=== PATIENT | male | born 1965 | race Caucasian/White ===

== ENCOUNTER 2023-02-03 08:58 | Outpatient (CLI) | payer BC ==
[2023-02-03] MEDS ORDERED: Iopamidol 370 76% 100 ML VIAL ONE (11:16)
== END 2023-02-03 08:59 | disposition home or self-care (01) ==
LOC: CT 08:58
PROVIDERS: ATTEND Urology
DX: N28.89 Other specified disorders of kidney and ureter (principal); E27.8 Other specified disorders of adrenal gland; I87.9 Disorder of vein, unspecified
CPT/HCPCS: 71260; 74178

== ENCOUNTER 2023-02-09 08:26 | Outpatient (CLI) | payer BC | END 2023-02-09 08:27 | disposition home or self-care (01) | LOC: NM 08:26 | PROVIDERS: ATTEND Urology | DX: N28.89 Other specified disorders of kidney and ureter (principal); E27.8 Other specified disorders of adrenal gland | CPT/HCPCS: 78306; A9503 ==

== ENCOUNTER 2023-03-11 14:30 | Outpatient (CLI) | payer BC ==
[2023-03-11 16:05] LABS: Bilirubin Neg (Negative); Blood, Urine Negative (Negative); Clarity Clear (Clear); Glucose, Urine (Dipstick) Normal (Negative); Ketone, Urine Negative (Negative); Leukocyte Negative (Negative); Nitrite Negative (Negative); Protein, Urine (Dipstick) Negative (Neg-Trace); Specific Gravity, Urine 1.015 (1.005-1.030); Urobilinogen Normal mg/dL (Less than 2)
[2023-03-11 16:07] LABS: Hematocrit 42.9 % (38.8-50.0); Hemoglobin 15.1 g/dL (13.5-17.5); Mean Corpuscular HGB CONC 35.2 g/dL (32.0-36.0); Mean Corpuscular Hemoglobin 31.5 pg (27.0-33.0); Mean Corpuscular Volume 89.4 fl (81.2-95.1); Mean Platelet Volume 10.3 fl (7.4-10.4); Platelet Count 241 10x3/uL (150-450); RBC Distribution Width 12.3 % (11.5-14.5); White Blood Cell (WBC) Count 6.7 10x3/uL (3.5-10.5)
[2023-03-11 16:16] LABS: Bacteria/HPF None Seen HPF (None Seen); RBC/HPF None Seen HPF (0-3); Squamous Epithelial 0-3 HPF (0-3); WBC/HPF None Seen HPF (0-3)
[2023-03-11 16:23] LABS: PTT 27.5 sec (22.0-33.0); Prothrombin Time 10.7 sec (9.5-12.1)
[2023-03-11 16:28] LABS: Anion Gap 18 mmol/L (10-20); BUN (Urea Nitrogen) 13 mg/dL (8.4-25.7); Calc. Creatinine Clearance 0 mL/min (70-130); Calcium 9.3 mg/dL (7.8-10.44); Carbon Dioxide 21 mmol/L (22-29); Chloride 105 mmol/L (98-107); Estimated GFR 94; Glucose 115 mg/dL (70-105); Potassium 4.3 mmol/L (3.5-5.1); Sodium 140 mmol/L (136-145)
== END 2023-03-11 14:31 | disposition home or self-care (01) ==
LOC: LABBT 14:30
PROVIDERS: ATTEND Urology
DX: Z01.818 Encounter for other preprocedural examination (principal); N28.89 Other specified disorders of kidney and ureter
CPT/HCPCS: 71046; 80048; 81001; 85027; 85610; 85730; 87086; 93005; 93010

== ENCOUNTER 2023-03-17 07:17 | Inpatient (IN) | payer BC ==
[2023-03-17] MEDS ORDERED: Heparin 10,000 UNITS/ 10 ML VIAL ONE (08:55)
[2023-03-17] MEDS ORDERED: fentaNYL 50 mcg/mL 1 mL Vial ONE ×7 (09:49→12:34)
[2023-03-17] MEDS ORDERED: Midazolam HCl 2 mg/2 ml Vial ONE ×2 (09:50→11:27)
[2023-03-17] MEDS ORDERED: hydrALAZINE 20 MG/ML VIAL ONE ×2 (09:55→11:35)
[2023-03-17] MEDS ORDERED: Iopamidol 370 76% 100 ML VIAL ONE (10:42)
[2023-03-17] MEDS ORDERED: Morphine 4 MG/ML VIAL ONE (11:06)
[2023-03-17] MEDS ORDERED: Atropine Sulfate 1 mg/10 ml Syringe ONE (11:30)
[2023-03-17] MEDS ORDERED: Ondansetron PF 4 MG/2 ML Vial ONE (11:53)
[2023-03-17] MEDS ORDERED: Metoprolol Tartrate 5 MG (5 mL) VIAL ONE (12:00)
[2023-03-17] MEDS ORDERED: Ondansetron PF 4 MG/2 ML Vial IVP PRN (12:02)
[2023-03-17] MEDS ORDERED: HYDROmorphone/PF 10 MG in Sodium Chloride 0.9% 99 ML IV PRN (12:02)
[2023-03-17] MEDS ORDERED: diphenhydrAMINE 50 MG/ML VIAL IVP PRN (12:02)
[2023-03-17] MEDS ORDERED: Naloxone HCl 0.4 mg/ml Vial IV PRN (12:02)
[2023-03-17] MEDS ORDERED: diphenhydrAMINE 50 MG/ML VIAL IM PRN (12:02)
[2023-03-17] MEDS ORDERED: diphenhydrAMINE 25 MG CAP PO PRN (12:02)
[2023-03-17] MEDS ORDERED: Communication Order-Pharmacy FS SCH (12:15)
[2023-03-17] MEDS ORDERED: HYDROmorphone 0.5 MG/0.5 ML SYRINGE ONE ×3 (12:42→13:26)
[2023-03-17] MEDS ORDERED: Acetaminophen 325 MG TAB PO PRN (13:06)
[2023-03-17] MEDS ORDERED: Metoclopramide HCl 10 MG (2 mL) VIAL IVP PRN (13:09)
[2023-03-17] MEDS ORDERED: Sodium Chloride 0.9% 1,000 ML IV SCH (13:15)
[2023-03-17] MEDS ORDERED: Scopolamine 1 mg/72 hour Patch ONE (15:52)
[2023-03-17] MEDS: Sodium Chloride 0.9% 1,000 ML IV SCH (17:27)
[2023-03-17] MEDS: Piperacillin/Tazobactam 3.375 GM in Sodium Chloride 0.9% 100 ML IVPB SCH (17:29)
[2023-03-17] MEDS ORDERED: GoLYTELY 4,000 ml Bottle PO SCH (17:30)
[2023-03-17] MEDS: GoLYTELY 4,000 ml Bottle PO SCH ×2 (17:53→17:56)
[2023-03-17 19:56] LABS: Hematocrit 43.4 % (42.0-52.0); Hemoglobin 14.9 g/dL (14.0-18.0); Mean Corpuscular HGB CONC 34.3 g/dL (32.0-36.0); Mean Corpuscular Hemoglobin 31.7 pg (27.0-31.0); Mean Corpuscular Volume 92.3 fl (78.0-98.0); Mean Platelet Volume 9.7 fL (7.4-10.4); Platelet Count 233 10x3/uL (130-400); RBC Distribution Width 12.6 % (11.5-14.5)
[2023-03-17 20:09] LABS: INR-International Normal Ratio 1.2; Prothrombin Time 14.7 sec (12.0-14.7)
[2023-03-17 20:10] LABS: PTT 25.8 sec (22.9-36.1)
[2023-03-17 20:19] LABS: Anion Gap 17 mmol/L (10-20); BUN (Urea Nitrogen) 12 mg/dL (8.4-25.7); Calc. Creatinine Clearance 123 mL/min (70-130); Carbon Dioxide 19 mmol/L (22-29); Chloride 105 mmol/L (98-107); Estimated GFR 75; Glucose 174 mg/dL (70-105); Potassium 4.1 mmol/L (3.5-5.1); Sodium 137 mmol/L (136-145)
[2023-03-18] MEDS: Piperacillin/Tazobactam 3.375 GM in Sodium Chloride 0.9% 100 ML IVPB SCH ×5 (00:20→23:48)
[2023-03-18] MEDS: Sodium Chloride 0.9% 1,000 ML IV SCH ×4 (00:21→22:02)
[2023-03-18] MEDS: Ondansetron PF 4 MG/2 ML Vial IVP PRN (00:24)
[2023-03-18 04:19] LABS: #Monocytes 0.7 thou/uL (0.11-0.59); #Neutrophils 10.6 thou/uL (1.40-6.50); %Basophils 0.2 % (0.0-1.0); %Lymphocytes 4.2 % (21.0-51.0); %Neutrophils 89.3 % (42.0-75.0); Hematocrit 41.4 % (42.0-52.0); Hemoglobin 14.1 g/dL (14.0-18.0); Mean Corpuscular HGB CONC 34.1 g/dL (32.0-36.0); Mean Corpuscular Volume 93.9 fl (78.0-98.0); Mean Platelet Volume 9.7 fL (7.4-10.4); Platelet Count 210 10x3/uL (130-400); RBC Distribution Width 12.6 % (11.5-14.5); Red Blood Cell (RBC) Count 4.41 mill/uL (4.70-6.10); White Blood Cell (WBC) Count 11.9 10x3/uL (4.8-10.8)
[2023-03-18 05:19] LABS: Anion Gap 16 mmol/L (10-20); BUN (Urea Nitrogen) 13 mg/dL (8.4-25.7); Calc. Creatinine Clearance 125 mL/min (70-130); Calcium 8.7 mg/dL (7.8-10.44); Carbon Dioxide 19 mmol/L (22-29); Chloride 106 mmol/L (98-107); Estimated GFR 76; Glucose 122 mg/dL (70-105); Potassium 4.2 mmol/L (3.5-5.1); Sodium 137 mmol/L (136-145)
[2023-03-18] MEDS ORDERED: Lidocaine 1% MPF 2 ML VIAL ONE (07:07)
[2023-03-18] MEDS ORDERED: Dexamethasone 20 MG/5 ML VIAL ONE (08:03)
[2023-03-18] MEDS ORDERED: PROPOFOL 200 MG/20 ML VIAL ONE (08:03)
[2023-03-18] MEDS ORDERED: Lidocaine 1.5% w/Epi 1:200K 30 ML VIAL (Epid Use) ONE (08:03)
[2023-03-18] MEDS ORDERED: PHENYLEPHRINE-NS 100 MCG/ML 10 ML SYRINGE ONE (08:03)
[2023-03-18] MEDS ORDERED: Calcium Chloride 1 GM/10 ML Abboject SYRINGE ONE (08:03)
[2023-03-18] MEDS ORDERED: Rocuronium Bromide 10 MG/ML (10ML VIAL) ONE (08:03)
[2023-03-18] MEDS ORDERED: Labetalol HCl 100 MG/20 ML VIAL ONE (08:03)
[2023-03-18] MEDS ORDERED: HYDROcodone/Acetaminophen 5/325 mg Tablet PO PRN (08:30)
[2023-03-18] MEDS ORDERED: Bupivacaine 0.25% 10 ML VIAL EPIDURAL PRN (08:30)
[2023-03-18] MEDS ORDERED: Zolpidem Tartrate 5 MG TAB PO PRN (08:30)
[2023-03-18] MEDS ORDERED: traMADol HCl 50 MG TAB PO PRN ×2 (08:30)
[2023-03-18] MEDS ORDERED: Promethazine HCl 25 MG SUPP PR PRN (08:30)
[2023-03-18] MEDS ORDERED: Naloxone HCl 0.4 mg/ml Vial IVP PRN (08:30)
[2023-03-18] MEDS ORDERED: Naloxone HCl 0.4 mg/ml Vial IV PRN (08:30)
[2023-03-18] MEDS ORDERED: Moisturizing Cream (Eucerin) 113 GM JAR TOP PRN (08:30)
[2023-03-18] MEDS ORDERED: ACTIVE EPIDURAL FS PRN (08:45)
[2023-03-18] MEDS ORDERED: Bisacodyl 10 MG SUPP PR PRN (12:37)
[2023-03-18] MEDS ORDERED: Promethazine HCl 25 MG/ML VIAL IM PRN (12:44)
[2023-03-18] MEDS ORDERED: Ondansetron HCl/PF 4 MG/2 ML Vial IVP PRN (12:44)
[2023-03-18] MEDS ORDERED: HYDROmorphone 2 MG/ML VIAL SLOW IVP PRN (12:44)
[2023-03-18] MEDS ORDERED: Polyethylene Glycol 3350 17 GM Packet PER TUBE SCH (12:45)
[2023-03-18] MEDS ORDERED: hydrALAZINE 20 MG/ML VIAL ONE (13:05)
[2023-03-18] MEDS ORDERED: fentaNYL 50 mcg/mL 1 mL Vial ONE (13:20)
[2023-03-18 13:21] LABS: #Monocytes 0.6 thou/uL (0.11-0.59); #Neutrophils 8.7 thou/uL (1.40-6.50); %Basophils 0.2 % (0.0-1.0); %Lymphocytes 3.7 % (21.0-51.0); %Neutrophils 89.9 % (42.0-75.0); Hematocrit 38.4 % (42.0-52.0); Hemoglobin 13.5 g/dL (14.0-18.0); Mean Corpuscular HGB CONC 35.2 g/dL (32.0-36.0); Mean Corpuscular Hemoglobin 31.9 pg (27.0-31.0); Mean Platelet Volume 9.8 fL (7.4-10.4); Platelet Count 156 10x3/uL (130-400); RBC Distribution Width 13.2 % (11.5-14.5); Red Blood Cell (RBC) Count 4.23 mill/uL (4.70-6.10); White Blood Cell (WBC) Count 9.7 10x3/uL (4.8-10.8)
[2023-03-18 13:27] LABS: Mean Corpuscular Volume 90.8 fl (78.0-98.0)
[2023-03-18 13:42] LABS: Anion Gap 10 mmol/L (10-20); BUN (Urea Nitrogen) 14 mg/dL (8.4-25.7); Calc. Creatinine Clearance 111 mL/min (70-130); Calcium 8.6 mg/dL (7.8-10.44); Carbon Dioxide 21 mmol/L (22-29); Chloride 110 mmol/L (98-107); Estimated GFR 65; Glucose 149 mg/dL (70-105); Potassium 4.1 mmol/L (3.5-5.1); Sodium 137 mmol/L (136-145)
[2023-03-18] MEDS ORDERED: hydrALAZINE 20 MG/ML VIAL SLOW IVP SCH (17:45)
[2023-03-18] MEDS: HYDROcodone/Acetaminophen 5/325 mg Tablet PO PRN ×2 (20:02→23:49)
[2023-03-18] MEDS: Docusate 100 MG CAP PO SCH (20:02)
[2023-03-18] MEDS ORDERED: Ropivacaine 0.2% HCl/PF 20 ML ONE (20:04)
[2023-03-18] MEDS ORDERED: Dexmedetomidine 200 MCG/2 ML VIAL ONE (20:05)
[2023-03-18] MEDS: Acetaminophen 325 MG TAB PO SCH (22:01)
[2023-03-19] MEDS: Labetalol HCl 100 MG/20 ML VIAL SLOW IVP PRN ×2 (02:08→23:42)
[2023-03-19] MEDS: Acetaminophen 325 MG TAB PO SCH ×4 (03:55→21:29)
[2023-03-19] MEDS: HYDROcodone/Acetaminophen 5/325 mg Tablet PO PRN (03:55)
[2023-03-19] MEDS: FENTANYL 500 MCG/10 ML VIAL 500 MCG, Bupivacaine 0.75% 10 ML in Sodium Chloride 0.9% 80 ML EPIDURAL SCH ×2 (04:25→17:02)
[2023-03-19] MEDS: Ondansetron PF 4 MG/2 ML Vial IVP PRN (05:02)
[2023-03-19] MEDS: Piperacillin/Tazobactam 3.375 GM in Sodium Chloride 0.9% 100 ML IVPB SCH ×4 (05:02→23:42)
[2023-03-19 05:17] LABS: #Monocytes 0.8 thou/uL (0.11-0.59); #Neutrophils 10.5 thou/uL (1.40-6.50); %Basophils 0.2 % (0.0-1.0); %Lymphocytes 4.5 % (21.0-51.0); %Monocytes 6.6 % (0.0-10.0); %Neutrophils 88.4 % (42.0-75.0); Hematocrit 39.3 % (42.0-52.0); Hemoglobin 13.5 g/dL (14.0-18.0); Mean Corpuscular HGB CONC 34.4 g/dL (32.0-36.0); Mean Corpuscular Hemoglobin 31.7 pg (27.0-31.0); Mean Corpuscular Volume 92.3 fl (78.0-98.0); Mean Platelet Volume 9.9 fL (7.4-10.4); Platelet Count 177 10x3/uL (130-400); RBC Distribution Width 13.6 % (11.5-14.5); Red Blood Cell (RBC) Count 4.26 mill/uL (4.70-6.10); White Blood Cell (WBC) Count 11.9 10x3/uL (4.8-10.8)
[2023-03-19 05:41] LABS: Anion Gap 11 mmol/L (10-20); BUN (Urea Nitrogen) 14 mg/dL (8.4-25.7); Calc. Creatinine Clearance 123 mL/min (70-130); Calcium 8.7 mg/dL (7.8-10.44); Carbon Dioxide 21 mmol/L (22-29); Chloride 108 mmol/L (98-107); Estimated GFR 74; Glucose 117 mg/dL (70-105); Potassium 3.7 mmol/L (3.5-5.1); Sodium 136 mmol/L (136-145)
[2023-03-19] MEDS: Sodium Chloride 0.9% 1,000 ML IV SCH ×3 (06:38→23:42)
[2023-03-19] MEDS ORDERED: Lidocaine 1.5% w/Epi 1:200K 30 ML VIAL (Epid Use) ONE (08:40)
[2023-03-19] MEDS: Docusate 100 MG CAP PO SCH ×2 (11:30→21:30)
[2023-03-19] MEDS: Pantoprazole 40 MG VIAL IVP SCH (11:30)
[2023-03-19] MEDS: Albuterol 1.25 MG (3 mL) NEB NEB SCH ×2 (13:56→19:47)
[2023-03-19] MEDS: Metoclopramide HCl 10 MG (2 mL) VIAL IVP SCH ×2 (15:58→21:30)
[2023-03-20] MEDS: Acetaminophen 325 MG TAB PO SCH ×4 (03:26→20:05)
[2023-03-20 04:03] LABS: #Monocytes 0.7 thou/uL (0.11-0.59); #Neutrophils 7.9 thou/uL (1.40-6.50); %Basophils 0.2 % (0.0-1.0); %Eosinophils 0.1 % (0.0-10.0); %Lymphocytes 7.5 % (21.0-51.0); %Monocytes 7.5 % (0.0-10.0); %Neutrophils 84.3 % (42.0-75.0); Hematocrit 34.6 % (42.0-52.0); Hemoglobin 11.9 g/dL (14.0-18.0); Mean Corpuscular HGB CONC 34.4 g/dL (32.0-36.0); Mean Corpuscular Hemoglobin 31.9 pg (27.0-31.0); Mean Corpuscular Volume 92.8 fl (78.0-98.0); Mean Platelet Volume 9.8 fL (7.4-10.4); Platelet Count 147 10x3/uL (130-400); RBC Distribution Width 13.6 % (11.5-14.5); Red Blood Cell (RBC) Count 3.73 mill/uL (4.70-6.10); White Blood Cell (WBC) Count 9.3 10x3/uL (4.8-10.8)
[2023-03-20 04:28] LABS: Anion Gap 10 mmol/L (10-20); BUN (Urea Nitrogen) 14 mg/dL (8.4-25.7); Calc. Creatinine Clearance 130 mL/min (70-130); Calcium 8.2 mg/dL (7.8-10.44); Carbon Dioxide 22 mmol/L (22-29); Chloride 109 mmol/L (98-107); Estimated GFR 80; Glucose 97 mg/dL (70-105); Potassium 3.8 mmol/L (3.5-5.1); Sodium 137 mmol/L (136-145)
[2023-03-20] MEDS: Labetalol HCl 100 MG/20 ML VIAL SLOW IVP PRN ×3 (05:40→20:11)
[2023-03-20] MEDS: Piperacillin/Tazobactam 3.375 GM in Sodium Chloride 0.9% 100 ML IVPB SCH ×4 (05:41→23:20)
[2023-03-20] MEDS: Metoclopramide HCl 10 MG (2 mL) VIAL IVP SCH ×3 (05:41→21:19)
[2023-03-20] MEDS: FENTANYL 500 MCG/10 ML VIAL 500 MCG, Bupivacaine 0.75% 10 ML in Sodium Chloride 0.9% 80 ML EPIDURAL SCH ×2 (05:46→18:23)
[2023-03-20] MEDS: Albuterol 1.25 MG (3 mL) NEB NEB SCH ×2 (07:08→13:26)
[2023-03-20] MEDS: Docusate 100 MG CAP PO SCH ×2 (09:28→20:05)
[2023-03-20] MEDS: Pantoprazole 40 MG VIAL IVP SCH (09:28)
[2023-03-20] MEDS: Ondansetron PF 4 MG/2 ML Vial IVP PRN ×2 (10:31→19:07)
[2023-03-20] MEDS ORDERED: NIFEdipine XL 30 MG ER.TAB PO SCH (12:00)
[2023-03-20] MEDS: Promethazine HCl 25 MG/ML VIAL IM PRN ×2 (12:18→20:19)
[2023-03-20] MEDS ORDERED: hydrALAZINE 20 MG/ML VIAL SLOW IVP SCH (12:45)
[2023-03-20] MEDS ORDERED: Sodium Chloride 0.9% 1,000 ML IV SCH (14:30)
[2023-03-20] MEDS ORDERED: Albuterol 2.5 MG (3 mL) NEB NEB PRN (15:30)
[2023-03-20] MEDS: Sodium Chloride 0.9% 1,000 ML IV SCH ×2 (15:50→23:21)
[2023-03-21] MEDS: Acetaminophen 325 MG TAB PO SCH ×4 (03:48→20:45)
[2023-03-21 04:25] LABS: #Monocytes 0.7 thou/uL (0.11-0.59); #Neutrophils 7.6 thou/uL (1.40-6.50); %Basophils 0.3 % (0.0-1.0); %Eosinophils 0.3 % (0.0-10.0); %Lymphocytes 5.7 % (21.0-51.0); %Monocytes 7.9 % (0.0-10.0); %Neutrophils 85.5 % (42.0-75.0); Hematocrit 36.3 % (42.0-52.0); Hemoglobin 12.3 g/dL (14.0-18.0); Mean Corpuscular HGB CONC 33.9 g/dL (32.0-36.0); Mean Corpuscular Hemoglobin 31.5 pg (27.0-31.0); Mean Corpuscular Volume 93.1 fl (78.0-98.0); Mean Platelet Volume 10.1 fL (7.4-10.4); Platelet Count 176 10x3/uL (130-400); RBC Distribution Width 13.9 % (11.5-14.5); White Blood Cell (WBC) Count 8.9 10x3/uL (4.8-10.8)
[2023-03-21 04:46] LABS: Anion Gap 9 mmol/L (10-20); BUN (Urea Nitrogen) 15 mg/dL (8.4-25.7); Calc. Creatinine Clearance 119 mL/min (70-130); Calcium 8.3 mg/dL (7.8-10.44); Carbon Dioxide 23 mmol/L (22-29); Chloride 109 mmol/L (98-107); Estimated GFR 72; Glucose 87 mg/dL (70-105); Potassium 3.7 mmol/L (3.5-5.1); Sodium 137 mmol/L (136-145)
[2023-03-21] MEDS: Metoclopramide HCl 10 MG (2 mL) VIAL IVP SCH ×3 (05:49→20:47)
[2023-03-21] MEDS: FENTANYL 500 MCG/10 ML VIAL 500 MCG, Bupivacaine 0.75% 10 ML in Sodium Chloride 0.9% 80 ML EPIDURAL SCH ×2 (05:49→18:11)
[2023-03-21] MEDS: Piperacillin/Tazobactam 3.375 GM in Sodium Chloride 0.9% 100 ML IVPB SCH ×2 (05:49→11:36)
[2023-03-21] MEDS: Enalaprilat Dihydrate 1.25 MG/ML VIAL SLOW IVP SCH ×3 (08:57→20:46)
[2023-03-21] MEDS: Pantoprazole 40 MG VIAL IVP SCH (08:58)
[2023-03-21] MEDS: Sodium Chloride 0.9% 1,000 ML IV SCH ×2 (08:59→18:09)
[2023-03-21] MEDS ORDERED: NIFEdipine XL 30 MG ER.TAB PO SCH (09:00)
[2023-03-21] MEDS: Docusate 100 MG CAP PO SCH ×2 (09:12→20:46)
[2023-03-21] MEDS ORDERED: traMADol HCl 50 MG TAB PO PRN ×2 (12:20)
[2023-03-21] MEDS ORDERED: Phenol 177 ML BOT PO PRN (15:44)
[2023-03-21] MEDS: Labetalol HCl 100 MG/20 ML VIAL SLOW IVP PRN (18:04)
[2023-03-22] MEDS: Acetaminophen 325 MG TAB PO SCH ×4 (03:39→22:00)
[2023-03-22] MEDS: Enalaprilat Dihydrate 1.25 MG/ML VIAL SLOW IVP SCH ×4 (03:39→20:54)
[2023-03-22] MEDS: Sodium Chloride 0.9% 1,000 ML IV SCH ×4 (03:39→21:17)
[2023-03-22 05:24] LABS: #Eosinphils 0.2 thou/uL (0.0-0.7); #Monocytes 0.8 thou/uL (0.11-0.59); #Neutrophils 6.2 thou/uL (1.40-6.50); %Basophils 0.4 % (0.0-1.0); %Eosinophils 1.9 % (0.0-10.0); %Lymphocytes 7.9 % (21.0-51.0); %Monocytes 10.2 % (0.0-10.0); %Neutrophils 79.3 % (42.0-75.0); Hematocrit 35.7 % (42.0-52.0); Hemoglobin 11.9 g/dL (14.0-18.0); Mean Corpuscular HGB CONC 33.3 g/dL (32.0-36.0); Mean Corpuscular Hemoglobin 31.2 pg (27.0-31.0); Mean Corpuscular Volume 93.7 fl (78.0-98.0); Mean Platelet Volume 10.1 fL (7.4-10.4); Platelet Count 199 10x3/uL (130-400); RBC Distribution Width 13.6 % (11.5-14.5); Red Blood Cell (RBC) Count 3.81 mill/uL (4.70-6.10); White Blood Cell (WBC) Count 7.8 10x3/uL (4.8-10.8)
[2023-03-22 05:43] LABS: Anion Gap 15 mmol/L (10-20); BUN (Urea Nitrogen) 15 mg/dL (8.4-25.7); Calc. Creatinine Clearance 121 mL/min (70-130); Calcium 8.2 mg/dL (7.8-10.44); Carbon Dioxide 20 mmol/L (22-29); Chloride 112 mmol/L (98-107); Estimated GFR 73; Glucose 76 mg/dL (70-105); Potassium 3.5 mmol/L (3.5-5.1); Sodium 143 mmol/L (136-145)
[2023-03-22] MEDS: Metoclopramide HCl 10 MG (2 mL) VIAL IVP SCH ×3 (05:51→22:31)
[2023-03-22] MEDS: Labetalol HCl 100 MG/20 ML VIAL SLOW IVP PRN ×4 (06:01→17:27)
[2023-03-22] MEDS: FENTANYL 500 MCG/10 ML VIAL 500 MCG, Bupivacaine 0.75% 10 ML in Sodium Chloride 0.9% 80 ML EPIDURAL SCH ×2 (06:49→18:38)
[2023-03-22] MEDS: Pantoprazole 40 MG VIAL IVP SCH (08:35)
[2023-03-22] MEDS: Docusate 100 MG CAP PO SCH ×2 (08:43→20:53)
[2023-03-22] MEDS ORDERED: Enalaprilat Dihydrate 1.25 MG/ML VIAL SLOW IVP SCH (09:15)
[2023-03-22] MEDS ORDERED: Potassium Chloride 20 MEQ in Premix 1 BAG IVPB SCH (10:15)
[2023-03-22] MEDS ORDERED: hydrALAZINE 20 MG/ML VIAL SLOW IVP PRN (15:40)
[2023-03-22] MEDS ORDERED: Furosemide 40 MG (4 mL) VIAL SLOW IVP SCH (17:15)
[2023-03-22] MEDS: niCARdipine 25 MG in Sodium Chloride 0.9% 250 ML 250 ML IVPB SCH ×2 (20:40→23:45)
[2023-03-22] MEDS: Heparin 5,000 UNITS/ML VIAL SC SCH (20:56)
[2023-03-23] MEDS: Enalaprilat Dihydrate 1.25 MG/ML VIAL SLOW IVP SCH ×2 (02:32→08:14)
[2023-03-23] MEDS: Acetaminophen 325 MG TAB PO SCH ×4 (03:44→21:23)
[2023-03-23 04:10] LABS: #Eosinphils 0.2 thou/uL (0.0-0.7); #Monocytes 0.8 thou/uL (0.11-0.59); #Neutrophils 7.3 thou/uL (1.40-6.50); %Basophils 0.4 % (0.0-1.0); %Eosinophils 1.9 % (0.0-10.0); %Lymphocytes 7.1 % (21.0-51.0); %Monocytes 8.7 % (0.0-10.0); %Neutrophils 81.2 % (42.0-75.0); Hematocrit 36.4 % (42.0-52.0); Hemoglobin 12.4 g/dL (14.0-18.0); Mean Corpuscular HGB CONC 34.1 g/dL (32.0-36.0); Mean Corpuscular Hemoglobin 31.2 pg (27.0-31.0); Mean Corpuscular Volume 91.7 fl (78.0-98.0); Mean Platelet Volume 9.5 fL (7.4-10.4); Platelet Count 208 10x3/uL (130-400); RBC Distribution Width 13.2 % (11.5-14.5); Red Blood Cell (RBC) Count 3.97 mill/uL (4.70-6.10)
[2023-03-23 04:35] LABS: Anion Gap 17 mmol/L (10-20); BUN (Urea Nitrogen) 17 mg/dL (8.4-25.7); Calc. Creatinine Clearance 108 mL/min (70-130); Calcium 8.4 mg/dL (7.8-10.44); Carbon Dioxide 18 mmol/L (22-29); Chloride 112 mmol/L (98-107); Estimated GFR 65; Glucose 83 mg/dL (70-105); Magnesium 2.2 mg/dL (1.6-2.6); Potassium 3.4 mmol/L (3.5-5.1); Sodium 144 mmol/L (136-145)
[2023-03-23] MEDS: niCARdipine 25 MG in Sodium Chloride 0.9% 250 ML 250 ML IVPB SCH ×5 (05:02→21:23)
[2023-03-23] MEDS: Metoclopramide HCl 10 MG (2 mL) VIAL IVP SCH ×3 (05:43→21:23)
[2023-03-23] MEDS ORDERED: Electrolyte Replacement Protocol 1 EACH FS SCH (06:15)
[2023-03-23] MEDS: FENTANYL 500 MCG/10 ML VIAL 500 MCG, Bupivacaine 0.75% 10 ML in Sodium Chloride 0.9% 80 ML EPIDURAL SCH ×2 (07:00→23:54)
[2023-03-23] MEDS ORDERED: Potassium Chloride 40 MEQ in Premix 1 BAG IVPB SCH (07:45)
[2023-03-23] MEDS: Docusate 100 MG CAP PO SCH ×2 (07:47→20:28)
[2023-03-23] MEDS: Furosemide 20 MG (2 mL) VIAL SLOW IVP SCH (07:59)
[2023-03-23] MEDS: Pantoprazole 40 MG VIAL IVP SCH (07:59)
[2023-03-23] MEDS ORDERED: Potassium Bicarbonate/Cit Ac 20 MEQ TAB PO SCH (08:00)
[2023-03-23] MEDS: Heparin 5,000 UNITS/ML VIAL SC SCH ×2 (08:00→20:28)
[2023-03-23] MEDS: Sodium Chloride 0.9% 1,000 ML IV SCH ×2 (08:14→21:23)
[2023-03-23] MEDS ORDERED: Amlodipine 5 MG TAB PO SCH (08:15)
[2023-03-23 13:24] VITALS: BMI 38.0
[2023-03-23] MEDS: NIFEdipine XL 30 MG ER.TAB PO SCH (20:28)
[2023-03-24] MEDS ORDERED: niCARdipine 40MG In NaCl 40 MG/200 ML BAG IVPB SCH (00:15)
[2023-03-24] MEDS ORDERED: niCARdipine 50 MG in Sodium Chloride 0.9% 250 ML 250 ML IVPB SCH (00:30)
[2023-03-24] MEDS ORDERED: niCARdipine 50 MG, Admixture Fee 1 EACH in Sodium Chloride 0.9% 250 ML 230 ML IV SCH (00:45)
[2023-03-24] MEDS: NICARDIPINE IVPB SCH ×2 (01:16→06:35)
[2023-03-24] MEDS: SODIUM CHLORIDE IVPB SCH ×2 (01:16→06:35)
[2023-03-24] MEDS: ADMIXTURE FEE IVPB SCH ×2 (01:16→06:35)
[2023-03-24] MEDS: Acetaminophen 325 MG TAB PO SCH ×4 (04:06→21:18)
[2023-03-24] MEDS: Sodium Chloride 0.9% 1,000 ML IV SCH (04:16)
[2023-03-24 05:18] LABS: #Basophils 0.1 thou/uL (0.0-0.2); #Eosinphils 0.3 thou/uL (0.0-0.7); #Neutrophils 9.5 thou/uL (1.40-6.50); %Basophils 0.6 % (0.0-1.0); %Eosinophils 2.2 % (0.0-10.0); %Lymphocytes 6.9 % (21.0-51.0); %Monocytes 8.7 % (0.0-10.0); %Neutrophils 80.9 % (42.0-75.0); Hematocrit 36.1 % (42.0-52.0); Hemoglobin 12.5 g/dL (14.0-18.0); Mean Corpuscular HGB CONC 34.6 g/dL (32.0-36.0); Mean Corpuscular Hemoglobin 31.4 pg (27.0-31.0); Mean Corpuscular Volume 90.7 fl (78.0-98.0); Platelet Count 225 10x3/uL (130-400); RBC Distribution Width 13.1 % (11.5-14.5); Red Blood Cell (RBC) Count 3.98 mill/uL (4.70-6.10); White Blood Cell (WBC) Count 11.7 10x3/uL (4.8-10.8)
[2023-03-24 06:16] LABS: Anion Gap 12 mmol/L (10-20); BUN (Urea Nitrogen) 13 mg/dL (8.4-25.7); Calc. Creatinine Clearance 113 mL/min (70-130); Calcium 8.1 mg/dL (7.8-10.44); Carbon Dioxide 20 mmol/L (22-29); Chloride 112 mmol/L (98-107); Estimated GFR 72; Glucose 111 mg/dL (70-105); Sodium 141 mmol/L (136-145)
[2023-03-24] MEDS: Metoclopramide HCl 10 MG (2 mL) VIAL IVP SCH ×3 (06:35→21:19)
[2023-03-24] MEDS ORDERED: niCARdipine 50 MG, Admixture Fee 1 EACH in Sodium Chloride 0.9% 250 ML 230 ML IVPB SCH (07:45)
[2023-03-24] MEDS: Potassium Chloride 20 MEQ in Premix 1 BAG IVPB SCH ×2 (07:49→09:47)
[2023-03-24] MEDS: Heparin 5,000 UNITS/ML VIAL SC SCH ×2 (07:58→21:19)
[2023-03-24] MEDS: NIFEdipine XL 30 MG ER.TAB PO SCH ×2 (08:19→21:18)
[2023-03-24] MEDS: Docusate 100 MG CAP PO SCH ×2 (08:19→21:18)
[2023-03-24] MEDS: Pantoprazole 40 MG VIAL IVP SCH (08:20)
[2023-03-24] MEDS: Furosemide 20 MG (2 mL) VIAL SLOW IVP SCH (08:20)
[2023-03-24] MEDS ORDERED: Amlodipine 5 MG TAB PO SCH (09:00)
[2023-03-24] MEDS ORDERED: NIFEdipine XL 30 MG ER.TAB PO SCH (13:00)
[2023-03-24] MEDS: hydrALAZINE 25 MG TAB PO SCH ×2 (15:39→21:18)
[2023-03-24] MEDS ORDERED: Tamsulosin HCl 0.4 MG CAP PO SCH (18:00)
[2023-03-25] MEDS: Acetaminophen 325 MG TAB PO SCH ×2 (04:09→10:19)
[2023-03-25 04:33] LABS: #Basophils 0.1 thou/uL (0.0-0.2); #Eosinphils 0.3 thou/uL (0.0-0.7); #Monocytes 0.9 thou/uL (0.11-0.59); #Neutrophils 7.9 thou/uL (1.40-6.50); %Basophils 0.5 % (0.0-1.0); %Eosinophils 2.7 % (0.0-10.0); %Lymphocytes 9.8 % (21.0-51.0); %Monocytes 8.5 % (0.0-10.0); %Neutrophils 77.7 % (42.0-75.0); Hematocrit 35.5 % (42.0-52.0); Hemoglobin 12.4 g/dL (14.0-18.0); Mean Corpuscular HGB CONC 34.9 g/dL (32.0-36.0); Mean Corpuscular Volume 88.8 fl (78.0-98.0); Mean Platelet Volume 9.7 fL (7.4-10.4); Platelet Count 203 10x3/uL (130-400); RBC Distribution Width 12.8 % (11.5-14.5); White Blood Cell (WBC) Count 10.1 10x3/uL (4.8-10.8)
[2023-03-25 05:02] LABS: Anion Gap 13 mmol/L (10-20); BUN (Urea Nitrogen) 11 mg/dL (8.4-25.7); Calc. Creatinine Clearance 112 mL/min (70-130); Calcium 8.3 mg/dL (7.8-10.44); Carbon Dioxide 22 mmol/L (22-29); Chloride 108 mmol/L (98-107); Estimated GFR 72; Glucose 116 mg/dL (70-105); Potassium 2.9 mmol/L (3.5-5.1); Sodium 140 mmol/L (136-145)
[2023-03-25] MEDS: Potassium Chloride 20 MEQ TAB PO SCH ×2 (06:04→09:02)
[2023-03-25] MEDS: Metoclopramide HCl 10 MG (2 mL) VIAL IVP SCH (06:04)
[2023-03-25] MEDS: Docusate 100 MG CAP PO SCH (07:28)
[2023-03-25] MEDS: Heparin 5,000 UNITS/ML VIAL SC SCH (07:28)
[2023-03-25] MEDS: hydrALAZINE 25 MG TAB PO SCH (07:28)
[2023-03-25] MEDS: NIFEdipine XL 30 MG ER.TAB PO SCH (07:28)
[2023-03-25] MEDS: Pantoprazole 40 MG VIAL IVP SCH (07:29)
[2023-03-25 07:40] VITALS: BP 142/66
[2023-03-25 09:17] VITALS: TEMP 98.7
[2023-03-25] MEDS: HYDROcodone/Acetaminophen 5/325 mg Tablet PO PRN (10:17)
[2023-03-25 11:37] LABS: Anion Gap 10 mmol/L (10-20); BUN (Urea Nitrogen) 9 mg/dL (8.4-25.7); Calc. Creatinine Clearance 111 mL/min (70-130); Calcium 8.3 mg/dL (7.8-10.44); Carbon Dioxide 24 mmol/L (22-29); Chloride 107 mmol/L (98-107); Estimated GFR 71; Glucose 137 mg/dL (70-105); Magnesium 1.7 mg/dL (1.6-2.6); Potassium 3.2 mmol/L (3.5-5.1); Sodium 138 mmol/L (136-145)
[2023-03-25] MEDS ORDERED: Magnesium 2 GM/50 ML(in water) 2 GM in Premix 1 BAG IVPB SCH (12:00)
[2023-03-25] MEDS ORDERED: Potassium Chloride 20 MEQ TAB PO SCH (12:00)
[2023-03-26 12:49] LABS: Actual Bicarbonate (HCO3a) 20.8 mEq/L (22-28); Analyzer IN Cardio OR; Base Excess (BEa) -4.8 mEq/L (-2.0 to +3.0); CO2 Tension 40.6 mmHg (35.0-45.0); Calcium, Ionized (arterial) 1.05 mmol/L (1.12-1.30); Carboxyhemoglobin (COHb) 0.6 gm% (0.0-3.0); Hematocrit-ABG 37 % (42.0-52.0); Hemoglobin (Hb) 12.6 g/dL (14.0-18.0); Potassium - ABG Lab 3.72 mmol/L (3.70-5.30); Puncture Site Arterial Line; pH, Arterial 7.328 (7.35-7.45)
[2023-03-26 12:49] LABS: Actual Bicarbonate (HCO3a) 20.6 mEq/L (22-28); Analyzer IN Cardio OR; Base Excess (BEa) -3.3 mEq/L (-2.0 to +3.0); CO2 Tension 33.7 mmHg (35.0-45.0); Calcium, Ionized (arterial) 1.05 mmol/L (1.12-1.30); Carboxyhemoglobin (COHb) 0.5 gm% (0.0-3.0); Hematocrit-ABG 39 % (42.0-52.0); Hemoglobin (Hb) 13.2 g/dL (14.0-18.0); O2 Tension (PaO2), arterial 264.6 mmHg (80.0-100.0); Potassium - ABG Lab 3.51 mmol/L (3.70-5.30); Puncture Site Arterial Line; pH, Arterial 7.405 (7.35-7.45)
[2023-03-26 15:15] LABS: Lipase-Fluid 26 U/L (.)
== END 2023-03-25 14:22 | disposition home or self-care (01) | DRG 657 ==
LOC: SDC 07:17 → SURG A 12:14 → IMCU/EMU 16:48 → CCU 03-22 20:06
PROVIDERS: ADMIT Family Medicine; ATTEND Family Medicine
PROC: 04L Lower Arteries, Occlusion (ICD-10-PCS; 2023-03-17)
PROC: B4101ZZ Fluoroscopy of Abdominal Aorta using Low Osmolar Contrast (ICD-10-PCS; 2023-03-17)
PROC: B41J1ZZ Fluoroscopy of Other Lower Arteries using Low Osmolar Contrast (ICD-10-PCS; 2023-03-17)
PROC: B4171ZZ Fluoroscopy of Left Renal Artery using Low Osmolar Contrast (ICD-10-PCS; 2023-03-17)
PROC: 0TT10ZZ Resection of Left Kidney, Open Approach (ICD-10-PCS; principal; 2023-03-18)
PROC: 0GT20ZZ Resection of Left Adrenal Gland, Open Approach (ICD-10-PCS; 2023-03-18)
PROC: 30233K1 Transfusion of Nonautologous Frozen Plasma into Peripheral Vein, Percutaneous Approach (ICD-10-PCS; 2023-03-18)
PROC: 30233N1 Transfusion of Nonautologous Red Blood Cells into Peripheral Vein, Percutaneous Approach (ICD-10-PCS; 2023-03-18)
PROC: 0DP60CZ Removal of Extraluminal Device from Stomach, Open Approach (ICD-10-PCS; 2023-03-18)
PROC: 0D9670Z Drainage of Stomach with Drainage Device, Via Natural or Artificial Opening (ICD-10-PCS; 2023-03-21)
DX: C64.2 Malignant neoplasm of left kidney, except renal pelvis (principal); B37.0 Candidal stomatitis; I82.3 Embolism and thrombosis of renal vein; K56.7 Ileus, unspecified; E66.01 Morbid (severe) obesity due to excess calories; I10 Essential (primary) hypertension; I08.1 Rheumatic disorders of both mitral and tricuspid valves; R13.10 Dysphagia, unspecified; I16.0 Hypertensive urgency; Z98.890 Other specified postprocedural states; Z68.37 Body mass index [BMI] 37.0-37.9, adult; Z90.49 Acquired absence of other specified parts of digestive tract
CPT/HCPCS: 36251; 36253; 36415; 36416; 36430; 37243; 61626; 71045; 71046; 74018; 74019; 74022; 80048; 82150; 82805; 83690; 83735; 85025; 85027; 85610; 85730; 86850; 86900; 86901; 88304; 88307; 94640; 99152; 99153; A4314; A4649; C1713; C1751; C1760; C1769 ×2; C1776; C1887; C9113; J0360; J0461; J1100; J1170; J1642; J1644; J1790; J1940; J2001; J2250; J2270; J2405; J2543; J2550; J2704; J2765; J2795; J3010; J3475; J3480; J3490; J7050; P9016; P9045; P9059; Q9967

== ENCOUNTER 2023-12-21 08:30 | Outpatient (CLI) | payer BC | END 2023-12-21 08:31 | disposition home or self-care (01) | LOC: NM 08:30 | PROVIDERS: ATTEND Internal Medicine Hematology & Oncology | DX: C64.2 Malignant neoplasm of left kidney, except renal pelvis (principal); C79.89 Secondary malignant neoplasm of other specified sites; E27.9 Disorder of adrenal gland, unspecified; Z90.5 Acquired absence of kidney; Z98.890 Other specified postprocedural states | CPT/HCPCS: 70553; 74183; 76376; 78306; A9503 ==

== ENCOUNTER 2024-01-26 15:27 | Outpatient (CLI) | payer BC | END 2024-01-26 15:28 | disposition home or self-care (01) | LOC: BICRAD 15:27 | PROVIDERS: ATTEND Urology | DX: C64.2 Malignant neoplasm of left kidney, except renal pelvis (principal) | CPT/HCPCS: 71046 ==

== ENCOUNTER 2024-10-19 11:45 | Outpatient (CLI) | payer BC | END 2024-10-19 11:46 | disposition home or self-care (01) | LOC: PET 11:45 | PROVIDERS: ATTEND Internal Medicine Hematology & Oncology | DX: C64.2 Malignant neoplasm of left kidney, except renal pelvis (principal); C79.89 Secondary malignant neoplasm of other specified sites | CPT/HCPCS: 78815; A9552 ==